=== PATIENT | female | born 1930 | race Caucasian/White ===

== ENCOUNTER 2017-06-11 08:07 | Day surgery (SDC) | payer MEDICARE, OTHER ==
[~2017-06-11] VITALS: Ht 152.4 cm; Wt 68.1 kg
[~2017-06-11 08:07] MED LIST: BACTDS PO; BENZ-5 PO; EPIN15AE IH; NAPR375T5 PO; OMEP10CA4 PO; OMEP20CA16 PO; OXYB5TAB7 PO; RANI25TA PO; TAMO10TA20 PO; TAMO20TA PO; TRAZ50TA18 PO
[2017-06-11 08:56] VITALS: Ht 152.4 cm; Wt 68.1 kg
[2017-06-11] MEDS ORDERED: LORA10TA3 PO (09:06)
[2017-06-11] MEDS ORDERED: METO5TAB58 PO (09:07)
[2017-06-11] MEDS ORDERED: SERT25TA83 PO (09:07)
[2017-06-11 09:11] VITALS: BP 162/85; PULSE 104; RESP 18
[2017-06-11] MEDS ORDERED: MIDAZOLAM 1 MG/ML 2 ML INJ ONE ×2 (10:20)
[2017-06-11] MEDS ORDERED: FENTAnyl 50 MCG/ML VIAL ONE (10:20)
[2017-06-11] MEDS ORDERED: hydrALAzine 20 MG INJ ONE (10:20)
--- NOTE | 2017-06-11 10:42 | OPPN ---
Date/Time of Note Date/Time of Note DATE: 06/11/17 TIME: 10:27 Proc Note GI Procedure date: Jun 11, 2017 Pre-procedure Diagnosis Screening colonoscopy Post-procedure Diagnosis Postop diagnoses #1 diverticulosis #2 4 mm flat polyp noted at the 25 cm from the anus this was removed with a cold biopsy forceps Operation Performed Colonoscopy Surgeon: GADIEL STROUD MD Anesthesia Type: moderate sedation Tourniquet Time: None Estimated blood loss: none Transfusion Required: no Specimens Polyp from 25 cm from the anus was removed Grafts/Implants: none Tubes/Drains None Complications: no Pt Condition post procedure: stable Indications Rule out colon polyp Operative\Procedure Findings 3 mm flat polyp noted at 25 cm from the anus #2 diverticulosis Procedure Description Colonoscopy After informed written consent is obtained patient was asked to lay on the left lateral side total 3 mg Versed 100 mcg of fentanyl was given as intravenous anesthesia The patient become somnolent Olympus video colonoscope was introduced into the rectum and scope was advanced all the way to the cecum 3 mm flat polyp was noted at 25 cm from the anus this was removed with the help of a cold biopsy forceps. Moderate degree of diverticulosis noted all over the colon No active bleeding No additional polyps noted At this time scope was withdrawn from the cecum on the way out and no additional abnormalities detected Number external hemorrhoids on Procedure was terminated Plan we will see the patient in the office for follow-up Please send copy to my office and also to the family doctor CC: a copy Dr. Stroud and also to the family doctor GADIEL STROUD MD Jun 11, 2017 10:38
[2017-06-11 10:46] VITALS: BP 137/56; PULSE 89; RESP 14
== END 2017-06-11 13:28 | disposition home or self-care (01) ==
LOC: GIL 08:07
PROVIDERS: ATTEND Internal Medicine Gastroenterology
DX: Z12.11 Encounter for screening for malignant neoplasm of colon (principal); K57.90 Diverticulosis of intestine, part unspecified, without perforation or abscess without bleeding; K63.5 Polyp of colon
CPT/HCPCS: 45380; 88305; J0360; J2250; J3010